=== PATIENT | male | born 1970 | race Caucasian/White ===

== ENCOUNTER 2019-05-16 10:00 | Emergency (ER) | payer OTHER, SELFPAY ==
[2019-05-16 10:02] VITALS: BP 157/107; PULSE 75; RESP 16; TEMP 36.6; O2SAT 99; BMI 32.5
--- NOTE | 2019-05-16 10:19 | ED.DCSUM_ITS ---
- ER Visit Summary Date of Service: 05/16/19 Chief Complaint: Atraumatic left ankle pain with a history of gout History of Present Illness: The patient is a 49 M history of gout. Monday more than a week ago he started having swelling in his left ankle. No fall or trauma. No fever. Or chills. No calf pain or calf swelling. He has had similar episodes 2 times before with gout. He went to a urgent care started on indomethacin and initially thought it was getting some better but now it is worse again. No other complaints. Physical Examination: Middle-aged male. No acute distress. Vital signs stable and afebrile. H EENT exam unremarkable. Neck nontender. Lungs clear to auscultation bilaterally. Heart regular rhythm no murmur. Abdomen soft nontender. Remedies moves all 4. Neurovascular intact. Left hip and knee are unremarkable nontender normal range of motion no swelling no redness. Left ankle swollen. Not red. Tender palpation. Pain with range of motion. Does not appear to be septic joint is consistent with gout. DP pulses intact. Left foot is neurovascular intact. Calf is nontender no edema. Neurologically he is awake alert with no focal motor deficits. Test Results: None. Emergency Department Course and Treatment: History and exam are consistent with an acute gout flare of the left ankle. He will stop his indomethacin. Start the prednisone first dose given in the ER. Treatment Plan: Prednisone 40 mg a day for 10 days. Follow-up if not improving. Return if worse or develops fever. Disposition: dc Impression: Atraumatic left ankle pain and swelling secondary to acute gout This note was generated with [employer] dictation software. It may contain incorrect words, spelling, and punctuation that were not noted in review of the chart prior to signing ED Disposition - Plan for ED Patient: Referrals: Care Physician,No Primary [Primary Care Provider] -
--- NOTE | 2019-05-16 10:22 | ED.DEP ---
ED Disposition - Plan for ED Patient: Disposition: Home or Assisted Living Instructions: Gouty Arthritis Prescriptions: predniSONE tablet 40 mg PO DAILY #10 tab Prescription Printed Referrals: Jayy Brown DO [STAFF PHYSICIAN] - 1 Week if not improving Additional Instructions: Stop your indomethacin. Prednisone 40 mg a day for the next 10 days. Return to ER if fever or feeling worse. Follow-up if not improving.
[2019-05-16] MEDS: predniSONE 20 MG Tablet 60 MG PO (10:35)
== END 2019-05-16 10:39 | disposition home or self-care (01) ==
LOC: ED 10:38
PROVIDERS: Emergency Provider Emergency Medicine
DX: M10.9 Gout, unspecified (principal)
CPT/HCPCS: 99284

== ENCOUNTER 2020-06-10 08:56 | Emergency (ER) | payer OTHER, SELFPAY ==
[2020-06-10 08:57] VITALS: BP 189/114; PULSE 80; RESP 16; TEMP 36.2; O2SAT 99; BMI 33.0
--- NOTE | 2020-06-10 09:11 | RAD_ITS ---
STUDY: X-RAY - LEFT HAND, ATTENTION THIRD FINGER REASON FOR EXAM: Male, 50 years old. injury to tip of finger, dropped a counter top on finger TECHNIQUE: 3 view(s) of the finger were obtained. COMPARISON: None. FINDINGS: Acute comminuted mildly displaced left third distal tuft fracture. No acute dislocation. No bone destruction. Soft tissue swelling. RAD/Finger(s) Min 2 Views IMPRESSION: Acute comminuted mildly displaced left third distal tuft fracture Electronically Signed: Ángel Jenkins DO at 9:45 EDT Tel , Service support ,
[2020-06-10] MEDS: Naproxen 500 MG Tablet PO (09:19)
--- NOTE | 2020-06-10 09:28 | ED.VISSUMM ---
- ER Visit Summary Date of Service: 06/10/20 Chief Complaint: Left middle finger pain. History of Present Illness: The patient is a 50 M with no primary care physician. He is right-hand dominant. He reports that yesterday dropped tabletop onto his left hand. This landed on his left second, third, and fourth fingers. He reports that the only area he has pain is the tip of his middle finger. It is a throbbing pain is 710 severity. Is worsened by movement of the by rest. Denies any paresthesias. Review of systems: General: No fever, chills, cold sweats. Cardiovascular: No chest pain, palpitations. Respiratory: No cough, shortness of breath, dyspnea on exertion. Gastrointestinal: No abdominal pain, nausea, vomiting, diarrhea, melena, or hematochezia. Genitourinary: No dysuria, frequency, hematuria. Skin: No rash. Neuro: No headache, numbness, weakness. Physical Examination: Vitals: Stable. Afebrile. General: Well-nourished and well-developed. Head: Normocephalic atraumatic. Neck: Supple, no lymphadenopathy. No JVD. Nontender. Cardiovascular: Regular rate and rhythm. No murmurs. Respiratory: No respiratory distress. Clear to auscultation bilaterally. Abdominal: Soft, nontender, nondistended, normal bowel sounds. No guarding, rebound, or peritoneal signs. Back: Nontender. Extremities: Left second and fourth fingers are nontender. He has a approximately 10% subungual hematoma of his middle finger. There is a contusion over the distal phalanx. There is no evidence of a felon. There is no break in the skin. Skin: Normal color, no rash. Neurologic: Alert and oriented ?3. Cranial nerves II through XII are intact. Normal strength and sensation. Psych: Normal affect. Test Results: X-ray shows a tuft fracture of his left third finger. Emergency Department Course and Treatment: Patient was treated naproxen and placed in aluminum foam splint. Treatment Plan: Patient be discharged with prescription for Percocet and naproxen. Instructed to follow-up Dr. Nichols in 1 week for another exam. Return to the emergency department for any worsening symptoms. Disposition: To home in improved and stable condition. Impression: 1. Left middle finger tuft fracture. This note was generated with [employer] dictation software. It may contain incorrect words, spelling, and punctuation that were not noted in review of the chart prior to signing ED Disposition - Plan for ED Patient: Instructions: ED FINGER FRACTURE Closed Prescriptions: Oxycodone HCl/Acetaminophen [Percocet 5/325] 1 tablet PO Q6H PRN PRN 3 Days #12 tablet PRN Reason: Pain Referrals: Tere Nichols DO [STAFF PHYSICIAN] - 1 Week
== END 2020-06-10 10:22 | disposition home or self-care (01) ==
PROVIDERS: Emergency Provider Emergency Medicine
DX: S62.633A Displaced fracture of distal phalanx of left middle finger, initial encounter for closed fracture (principal); W22.8XXA Striking against or struck by other objects, initial encounter; Y93.9 Activity, unspecified; Y92.9 Unspecified place or not applicable
CPT/HCPCS: 73140; 99283